=== PATIENT | female | born 1955 | race Caucasian/White ===

== ENCOUNTER 2019-02-24 08:55 | Observation (INO) | payer OTHER ==
[2019-02-24 09:19] LABS: ABSOLUTE LYMPHOCYTES (AUTO) 1.8 10^3/uL (0.5-4.7); ABSOLUTE MONOCYTES (AUTO) 0.3 10^3/uL (0.1-1.4); ABSOLUTE NEUT (AUTO) 3.3 10^3/uL (1.7-8.2); BASOPHILS % (AUTO) 0.3 % (0-2); EOSINOPHILS % (AUTO) 0.7 % (0-6); HEMATOCRIT 39.1 % (36.0-47.0); HEMOGLOBIN 12.9 g/dL (12.0-15.5); LYMPHOCYTES % (AUTO) 33.6 % (13-45); MEAN CORPUSCULAR HEMOGLOBIN 30.6 pg (27.0-33.4); MEAN CORPUSCULAR VOLUME 93 fl (80-97); PLATELET COUNT 272 10^3/uL (150-450); RED BLOOD COUNT 4.21 10^6/uL (3.72-5.28); RED CELL DISTRIBUTION WIDTH 13.4 % (11.5-14.0); SEGMENTED NEUTROPHILS % (AUTO) 60.4 % (42-78); TOTAL CELLS COUNTED % (AUTO) 100 %; WHITE BLOOD COUNT 5.5 10^3/uL (4.0-10.5)
[2019-02-24 09:35] LABS: ALBUMIN 4.2 g/dL (3.5-5.0); ALKALINE PHOSPHATASE 70 U/L (38-126); ANION GAP 10 (5-19); ASPARTATE AMINO TRANSFERASE 22 U/L (14-36); BILIRUBIN,TOTAL 0.5 mg/dL (0.2-1.3); BLOOD UREA NITROGEN 12 mg/dL (7-20); CALCIUM 9.1 mg/dL (8.4-10.2); CARBON DIOXIDE 25 mmol/L (22-30); CHLORIDE 105 mmol/L (98-107); CREATINE KINASE 36 U/L (30-135); GLUCOSE 127 mg/dL (75-110); POTASSIUM 4.1 mmol/L (3.6-5.0)
[2019-02-24 09:46] LABS: CREATINE KINASE MB 0.72 ng/mL (<4.55)
[2019-02-24 09:49] LABS: TROPONIN I < 0.012 ng/mL
[2019-02-24 09:59] LABS: APPEARANCE,URINE CLEAR; BILIRUBIN,URINE NEGATIVE (NEGATIVE); COLOR,URINE YELLOW; GLUCOSE, URINE NEGATIVE (NEGATIVE); KETONES,URINE NEGATIVE (NEGATIVE); LEUKOCYTE ESTERASE,URINE TRACE (NEGATIVE); NITRITE,URINE NEGATIVE (NEGATIVE); PROTEIN,URINE 100 mg/dL (NEGATIVE); UROBILINOGEN,URINE NEGATIVE mg/dL (<2.0)
[2019-02-24 10:00] LABS: URINE SPECIFIC GRAVITY 1.017
--- NOTE | 2019-02-24 10:21 | ER Document Report ---
ED General - General Chief Complaint: Fainting Stated Complaint: SYNCOPE Time Seen by Provider: 02/24/19 10:18 TRAVEL OUTSIDE OF THE [place] IN LAST 30 DAYS: No - HPI Notes: Patient was exercising when she felt lightheaded she took a break start exercising again felt lightheaded again started walking away when she suddenly passed out. She did not have any palpitations or chest pain no headaches but she did have mild nausea. She denies any headache or vision changes at this time. No recent fevers illnesses cough or congestion. No recent medication changes. She does have a history of anxiety and takes a cough suppressant daily. No history of heart attack or stroke. No black or red stools. No v omiting or diarrhea recently. No history of seizures and she did not have any tongue bite or urinating on herself - Related Data Allergies/Adverse Reactions: erythromycin base Adverse Reaction (Intermediate, Verified 10/13/15 07:14) SKIN IRRIATION mercury (elemental) Adverse Reaction (Intermediate, Verified 10/13/15 07:14) SKIN IRRITATION Past Medical History - Social History Smoking Status: Unknown if Ever Smoked Frequency of alcohol use: None Drug Abuse: None Family History: Reviewed & Not Pertinent Patient has suicidal ideation: No Patient has homicidal ideation: No - Past Medical History Cardiac Medical History: Denies: Hx Coronary Artery Disease, Hx Heart Attack, Hx Hypertension Pulmonary Medical History: Denies: Hx Asthma, Hx Bronchitis, Hx COPD, Hx Pneumonia Neurological Medical History: Denies: Hx Cerebrovascular Accident, Hx Seizures Musculoskeletal Medical History: Denies Hx Arthritis - "STIFFNESS IN JOINTS TIMES" Past Surgical History: Denies: Hx Hysterectomy - Immunizations Hx Diphtheria, Pertussis, Tetanus Vaccination: Yes Review of Systems - Review of Systems Constitutional: No symptoms reported EENT: No symptoms reported Cardiovascular: No symptoms reported Respiratory: No symptoms reported Gastrointestinal: No symptoms reported Genitourinary: No symptoms reported Female Genitourinary: No symptoms reported Musculoskeletal: No symptoms reported Skin: No symptoms reported Hematologic/Lymphatic: No symptoms reported Neurological/Psychological: See HPI Physical Exam - Vital signs Vitals: Resp BP Pulse Ox 14 138/68 H 97 02/24/19 09:03 02/24/19 09:03 02/24/19 09:03 - General General appearance: Appears well, Alert - HEENT Head: Normocephalic, Atraumatic - Respiratory Respiratory status: No respiratory distress Chest status: Nontender Breath sounds: Normal Chest palpation: Normal - Cardiovascular Rhythm: Regular Heart sounds: Normal auscultation Murmur: No - Abdominal Inspection: Normal Distension: No distension Bowel sounds: Normal Tenderness: Nontender - Back Back: Normal - Extremities General upper extremity: Normal inspection, Normal ROM General lower extremity: Normal inspection, Normal ROM - Neurological Neuro grossly intact: Yes Cognition: Normal Orientation: AAOx4 Course - Re-evaluation Re-evalutation: 02/24/19 12:20 Will be admitted for syncope work-up. Incidental finding on CT consistent with meningioma discussed this with Dr. Estrada she could warrant MRI while she is on observation status with outpatient follow-up. - Vital Signs Vital signs: Temp Pulse Resp BP Pulse Ox 98.5 F 95 14 135/64 H 96 02/25/19 14:06 02/25/19 14:06 02/25/19 14:06 02/25/19 14:06 02/25/19 14:06 - Laboratory Result Diagrams: 02/25/19 07:37 02/25/19 07:37 Laboratory results interpreted by me: 02/24/19 02/24/19 09:00 09:36 Glucose 127 H Urine Protein 100 H Ur Leukocyte Esterase TRACE H - Diagnostic Test Radiology reviewed: Reports reviewed - EKG Interpretation by Me EKG shows normal: Sinus rhythm Rate: Normal Rhythm: NSR Discharge - Discharge Clinical Impression: Syncope and collapse Condition: Good Disposition: ADMITTED OBSERVATION Admitting Provider: True (Hospitalist) Unit Admitted: Telemetry
--- NOTE | 2019-02-24 10:51 | RADIOLOGY REPORT (SQ) ---
EXAM DESCRIPTION: CHEST SINGLE VIEW COMPLETED DATE/TIME: 02/24/2019 10:39 am REASON FOR STUDY: syncope COMPARISON: None. EXAM PARAMETERS: NUMBER OF VIEWS: One view. TECHNIQUE: Single frontal radiographic view of the chest acquired. RADIATION DOSE: NA LIMITATIONS: None. FINDINGS: LUNGS AND PLEURA: Linear basilar opacities could represent strands of atelectasis or paren chymal bands. There is no consolidation, pleural effusion or pneumothorax. MEDIASTINUM AND HILAR STRUCTURES: No mediastinal or hilar contour abnormality. HEART AND VASCULAR STRUCTURES: The cardiac silhouette and pulmonary vasculature are within normal rae its. BONES: No acute findings. HARDWARE: None in the chest. OTHER: No other finding. IMPRESSION: No acute cardiopulmonary process. TECHNICAL DOCUMENTATION: JOB ID: [id number] [employer]- All Rights Reserved Reading location - IP/workstation name: [email or web address]
--- NOTE | 2019-02-24 11:19 | RADIOLOGY REPORT (SQ) ---
EXAM DESCRIPTION: CT HEAD WITHOUT COMPLETED DATE/TIME: 02/24/2019 10:56 am REASON FOR STUDY: syncope COMPARISON: None. TECHNIQUE: Axial images acquired through the brain without intravenous contrast. Images reviewed wi th bone, brain and subdural windows. Additional sagittal and coronal reconstructions were generated. Images stored on PACS. All CT scanners at this facility use dose modulation, iterative reconstruction, and/or weight based d osing when appropriate to reduce radiation dose to as low as reasonably achievable (ALARA). [facility]: Dose Right [facility]: CareDose [facility]: Dose Right [facility]: Teradose 4D [facility]: Informous RADIATION DOSE: CT Rad equipment meets quality standard of care and radiation dose reduction techniq ues were employed. CTDIvol: 53.2 mGy. DLP: 1070 mGy-cm. mGy. LIMITATIONS: None. FINDINGS: There is a hyperdense mass along the left temporal convexity that measures approximately 1 .2 cm in transverse diameter, 1.8 cm in AP diameter and 2.2 cm in craniocaudal diameter. The mass ex erts mild mass effect on the adjacent brain parenchyma; there is no vasogenic edema. There is also no acute intracranial hemorrhage, extra-axial fluid collection, or midline shift. Ther e is no effacement of cerebral sulci or basal subarachnoid cisterns. The wray-white matter different iation is preserved. The caliber the ventricles is concordant with the degree of sulcation. The orbits and globes are intact. The paranasal sinuses are clear. There is no fracture of the calvarium. IMPRESSION: Hyperdense extra-axial mass along the left temporal convexity that measures approximatel y 1.2 cm in transverse diameter, 1.8 cm in AP diameter and 2.2 cm in craniocaudal diameter. The mass exerts mild mass-effect on the adjacent brain parenchyma without considerable vasogenic edema presen t. The favored differential consideration is a meningioma. EVIDENCE OF ACUTE STROKE: NO. COMMENT: Quality ID # [id number]: Final reports with documentation of one or more dose reduction techniques (e.g., Automated exposure control, adjustment of the mA and/or kV according to patient size, use of iterative reconstruction technique) TECHNICAL DOCUMENTATION: JOB ID: [id number] [employer]- All Rights Reserved Reading location - IP/workstation name: [email or web address]ENTERBRIGIDA
[2019-02-24] MEDS ORDERED: ACETAMINOPHEN 325 MG TABLET PO PRN (12:51)
[2019-02-24] MEDS ORDERED: MAG HYDROX/AL HYDROX/SIMETH SUSP 30 ML UDCUP PO PRN (12:51)
[2019-02-24] MEDS ORDERED: ONDANSETRON HCL INJ/PF 4 MG/2 ML SDV IV PRN (12:51)
[2019-02-24] MEDS ORDERED: ONDANSETRON 4 MG TAB.RAPDIS PO PRN (12:51)
[2019-02-24] MEDS ORDERED: OXYCODONE-ACETAMINOPHEN 5-325 MG TABLET PO PRN (12:51)
--- NOTE | 2019-02-24 13:09 | PDOC H&P ---
History of Present Illness Admission Date/PCP: 02/24/19 12:23 EVONNE CHAMORRO MD History of Present Illness: EARNESTINE BANG is a 63 year old female who was admitted through the emergency room for syncope episode. Was evidently had a exercise program this morning around 730 when about 30 minutes into the program she became weak and felt "faint". Patient went to the side of the room said she felt some better was going to get up and walk out to the front when she slumped and went to the ground. She did not hit her head according to the patient she was out for about 1 minute. No seizure activity, no chest pain, no vomiting patient reports feeling nauseated.. She states she is never had this happen to her before. States she was not doing a cardio workout it was more of a free weights and controlled exercise class. Patient states she does this class about 3 times every week. She denies eating anything prior to taking the class this morning. Patient denies any recent illnesses. Patient states she is otherwise healthy denies diabetes denies hypertension denies heart disease. Patient has no complaints at this time. Patient just recently retired as a schoolteacher. He takes Xanax as a PRN medicine for anxiety and sounds like she uses it every day Past Medical History Cardiac Medical History: Denies: Coronary Artery Disease, Myocardial Infarction, Hypertension Pulmonary Medical History: Denies: Asthma, Bronchitis, Chronic Obstructive Pulmonary Disease (COPD), Pneumonia Neurological Medical History: Denies: Seizures Musculoskeltal Medical History: Denies: Arthritis - "STIFFNESS IN JOINTS TIMES" Skin Medical History: Reports: Other - Benign skin growths Psychiatric Medical History: Reports: General Anxiety Disorder Hematology: Denies: Anemia Past Surgical History Past Surgical History: Denies: Hysterectomy Social History Smoking Status: Unknown if Ever Smoked - Advance Directive Resuscitation Status: Full Code Family History Parental Family History Reviewed: No Children Family History Reviewed: No Sibling(s) Family History Reviewed.: No Medication/Allergy Home Medications: Alprazolam [Xanax 0.5 mg Tablet] 0.5 mg PO TID 10/11/15 Benzonatate [Tessalon Perles 100 mg Capsule] 200 mg PO Q8HP PRN 10/11/15 Ibuprofen [Advil] 200 mg PO ASDIR PRN 10/11/15 Multivitamin [Multivitamins] 1 each PO DAILY 10/11/15 Mv-Mn/C/Glutamin/Lysin/Lrnh668 [Airborne Lozenge] 1 each PO ASDIR PRN 10/11/15 Allergies/Adverse Reactions: erythromycin base Adverse Reaction (Intermediate, Verified 10/13/15 07:14) SKIN IRRIATION mercury (elemental) Adverse Reaction (Intermediate, Verified 10/13/15 07:14) SKIN IRRITATION Review of Systems All systems: reviewed and no additional remarkable complaints except as stated Constitutional: ABSENT: chills, fever(s), headache(s), weight gain, weight loss Breasts: PRESENT: other - She reports that she has fibroids in her breast Respiratory: ABSENT: cough, hemoptysis Gastrointestinal: ABSENT: abdominal pain, constipation, diarrhea, hematemesis, hematochezia, nausea, vomiting Neurological: ABSENT: abnormal gait, abnormal speech, confusion, dizziness, focal weakness, syncope Psychiatric: PRESENT: anxiety Physical Exam Vital Signs: Temp Pulse Resp BP Pulse Ox 58 L 16 127/66 H 96 02/24/19 09:23 02/24/19 10:01 02/24/19 10:01 02/24/19 11:49 Intake & Output 02/23/19 02/24/19 02/25/19 06:59 06:59 06:59 Weight 74.5 kg General appearance: PRESENT: no acute distress Neck exam: ABSENT: carotid bruit, JVD, lymphadenopathy, thyromegaly Respiratory exam: PRESENT: clear to auscultation ike. ABSENT: rales, rhonchi, wheezes Cardiovascular exam: PRESENT: RRR. ABSENT: diastolic murmur, rubs, systolic murmur Neurological exam: PRESENT: alert, awake, oriented to person, oriented to place, oriented to time, oriented to situation, CN II-XII grossly intact. ABSENT: motor sensory deficit Psychiatric exam: PRESENT: appropriate affect, normal mood. ABSENT: homicidal ideation, suicidal ideation Results Laboratory Results: 02/24/19 09:00 02/24/19 09:00 02/24/19 02/24/19 02/24/19 09:00 09:00 09:36 WBC 5.5 RBC 4.21 Hgb 12.9 Hct 39.1 MCV 93 MCH 30.6 MCHC 33.0 RDW 13.4 Plt Count 272 Seg Neutrophils % 60.4 Sodium 140.0 Potassium 4.1 Chloride 105 Carbon Dioxide 25 Anion Gap 10 BUN 12 Creatinine 0.73 Est GFR ( Amer) > 60 Glucose 127 H Calcium 9.1 Total Bilirubin 0.5 AST 22 Alkaline Phosphatase 70 Total Protein 7.0 Albumin 4.2 Urine Color YELLOW Urine Appearance CLEAR Urine pH 5.0 Ur Specific [place] 1.017 Urine Protein 100 H Urine Glucose (UA) NEGATIVE Urine Ketones NEGATIVE Urine Blood NEGATIVE Urine Nitrite NEGATIVE Ur Leukocyte Esterase TRACE H Urine WBC (Auto) 4 Urine RBC (Auto) 1 02/24/19 02/24/19 02/24/19 09:00 09:00 09:00 Creatine Kinase 36 CK-MB (CK-2) 0.72 Troponin I < 0.012 Cancelled NT-Pro-B Natriuret Pep 122 Impressions: Chest X-Ray 02/24/19 10:18 IMPRESSION: No acute cardiopulmonary process. Head CT 02/24/19 10:21 IMPRESSION: Hyperdense extra-axial mass along the left temporal convexity that measures approximately 1.2 cm in transverse diameter, 1.8 cm in AP diameter and 2.2 cm in craniocaudal diameter. The mass exerts mild mass-effect on the adjacent brain parenchyma without considerable vasogenic edema present. The favored differential consideration is a meningioma. EVIDENCE OF ACUTE STROKE: NO. Assessment and Plan - Diagnosis (1) Meningioma Is this a current diagnosis for this admission?: Yes (2) Anxiety Is this a current diagnosis for this admission?: Yes (3) Syncope and collapse Is this a current diagnosis for this admission?: Yes - Plan Summary Summary: Patient had a CT head scan as part of her routine work-up in the ER and it revealed a probable meningioma in the left cortex. To be studied further with an MRI scan of the brain Patient will have an echocardiogram as well as carotid Dopplers. Patient will be put in under observation status under telemetry for further evaluation of any cardiac abnormalities. Patient's was in the room during the examination all of their her questions were answered Patient is currently medically stable - Time Time Spent with patient: 35 or more minutes
[2019-02-24] MEDS: ENOXAPARIN SODIUM INJ 40 MG/0.4 ML DISP.SYRIN SUBCUT SCH (13:35)
--- NOTE | 2019-02-24 13:57 | EKG REPORT ---
SEVERITY:- BORDERLINE ECG - SINUS RHYTHM BORDERLINE T ABNORMALITIES, INFERIOR LEADS : Confirmed by: Moshe Betancur MD 24-Feb-2019 13:56:07
[2019-02-24] MEDS ORDERED: ALPRAZOLAM 0.5 MG TABLET PO PRN (14:24)
[2019-02-24 15:42] LABS: CREATINE KINASE MB 0.77 ng/mL (<4.55)
[2019-02-24 15:52] LABS: TROPONIN I < 0.012 ng/mL
--- NOTE | 2019-02-24 16:12 | RADIOLOGY REPORT (SQ) ---
EXAM DESCRIPTION: MRI HEAD COMBO COMPLETED DATE/TIME: 02/24/2019 3:44 pm REASON FOR STUDY: menngioma on ct COMPARISON: 02/24/2019 CT TECHNIQUE: Multiplanar imaging includes noncontrasted T1, T2, FLAIR, diffusion with ADC map and post gadolinium contrast T1 sequences. Images stored on PACS. CONTRAST TYPE AND DOSE: 15 mL Dotarem. RENAL FUNCTION: GFR > 60. LIMITATIONS: None. FINDINGS: ANATOMY: No anomalies. Normal vascular flow voids. Pituitary fossa normal. CSF SPACES: Normal in size and contour. No hemorrhage. CEREBRUM: Sulci and gyri normal in size and contour. Normal white matter signal on FLAIR imaging. No evidence of hemorrhage or extraaxial fluid collection. 1.9 cm extra-axial uniformly enhancing mass i n the left frontotemporal region with dural attachment most consistent with meningioma. POSTERIOR FOSSA: No signal alteration. No hemorrhage. No edema, masses, or mass effect. Internal diego tory canals, cerebellopontine angles, mastoids normal. No enhancing lesions. No abnormal enhancement post contrast. DIFFUSION IMAGING: Negative for acute or subacute infarction. ORBITS: No masses. Globes normal. PARANASAL SINUSES: No fluid levels. Mucosa normal. OTHER: No other significant finding. IMPRESSION: 1.9 cm extra-axial uniformly enhancing mass in the left frontotemporal region with dur al attachment most consistent with meningioma. Otherwise unremarkable exam. EVIDENCE OF ACUTE STROKE: NO. TECHNICAL DOCUMENTATION: JOB ID: [id number] [place]-72 2010 [email or web address]- All Rights Reserved Reading location - IP/workstation name: [email or web address] Sparks NetworkUrban Gentleman
--- NOTE | 2019-02-24 17:08 | RADIOLOGY REPORT (SQ) ---
EXAM DESCRIPTION: CAROTID DOPPLER COMPLETED DATE/TIME: 02/24/2019 4:18 pm REASON FOR STUDY: syncope COMPARISON: None. TECHNIQUE: Grayscale ultrasound, Doppler velocity and spectra, and color Doppler images acquired of the extra-cranial carotid and vertebral arteries. Images stored on PACS. LIMITATIONS: None. FINDINGS: RIGHT CAROTID CCA Velocities: Within normal limits. ICA Velocities Peak systolic 131 cm/s. End diastolic 46 cm/s. Proximal ICA/CCA peak systolic ratio 1.6. Spectra normal. No significant plaque. LEFT CAROTID CCA Velocities: Within normal limits. ICA Velocities Peak systolic 140 cm/s. End diastolic 53 cm/s. Proximal ICA/CCA peak systolic ratio 1.4. Spectra normal. No significant plaque. VERTEBRAL ARTERIES: Antegrade flow. Normal waveforms. SUBCLAVIAN ARTERIES: No finding. OTHER: No other significant finding. IMPRESSION: NO HEMODYNAMICALLY SIGNIFICANT STENOSIS. COMMENT: Quality ID #[id number]: Velocity criteria are extrapolated from the diameter data as defined by t ruthie Society of Radiologists in Ultrasound Consensus Conference. Radiology 2003: 229; 340-346. TECHNICAL DOCUMENTATION: JOB ID: [id number] [place]-72 2010 [email or web address]- All Rights Reserved Reading location - IP/workstation name: [email or web address]
[2019-02-24] MEDS: FAMOTIDINE 20 MG TABLET PO SCH (21:35)
[2019-02-24] MEDS ORDERED: ALPRAZOLAM 0.5 MG TABLET PO SCH (22:00)
[2019-02-25 08:11] LABS: ABSOLUTE EOSINOPHILS # (AUTO) 0.1 10^3/uL (0.0-0.6); ABSOLUTE LYMPHOCYTES (AUTO) 2.3 10^3/uL (0.5-4.7); ABSOLUTE MONOCYTES (AUTO) 0.3 10^3/uL (0.1-1.4); ABSOLUTE NEUT (AUTO) 2.2 10^3/uL (1.7-8.2); BASOPHILS % (AUTO) 0.7 % (0-2); EOSINOPHILS % (AUTO) 1.6 % (0-6); HEMATOCRIT 38.6 % (36.0-47.0); HEMOGLOBIN 13.2 g/dL (12.0-15.5); LYMPHOCYTES % (AUTO) 45.9 % (13-45); MEAN CORPUSCULAR HEMOGLOBIN 31.5 pg (27.0-33.4); MEAN CORPUSCULAR HGB CONC 34.1 g/dL (32.0-36.0); MEAN CORPUSCULAR VOLUME 92 fl (80-97); MONOCYTES % (AUTO) 6.9 % (3-13); PLATELET COUNT 272 10^3/uL (150-450); RED BLOOD COUNT 4.18 10^6/uL (3.72-5.28); RED CELL DISTRIBUTION WIDTH 13.7 % (11.5-14.0); SEGMENTED NEUTROPHILS % (AUTO) 44.9 % (42-78); TOTAL CELLS COUNTED % (AUTO) 100 %; WHITE BLOOD COUNT 4.9 10^3/uL (4.0-10.5)
[2019-02-25 08:13] LABS: ANION GAP 10 (5-19); BLOOD UREA NITROGEN 16 mg/dL (7-20); CALCIUM 9.5 mg/dL (8.4-10.2); CARBON DIOXIDE 24 mmol/L (22-30); CHLORIDE 108 mmol/L (98-107); GLUCOSE 89 mg/dL (75-110); POTASSIUM 4.3 mmol/L (3.6-5.0)
[2019-02-25] MEDS: FAMOTIDINE 20 MG TABLET PO SCH (09:19)
[2019-02-25] MEDS: ENOXAPARIN SODIUM INJ 40 MG/0.4 ML DISP.SYRIN SUBCUT SCH (09:19)
[2019-02-25] MEDS ORDERED: MULTIVITAMIN TABLET PO SCH (10:00)
[2019-02-25] MEDS ORDERED: DOCUSATE SODIUM 100 MG CAPSULE PO SCH (10:00)
[2019-02-25] MEDS ORDERED: CHOLECALCIFEROL (D3) 1,000 UNIT (25 MCG) TABLET PO SCH (10:00)
--- NOTE | 2019-02-25 12:40 | PDOC DISCHARGE SUMMARY ---
Impression - Admit/DC Date/PCP Admission Date/Primary Care Provider: 02/24/19 12:23 EVONNE CRUMP MD Discharge Date: 02/25/19 - Discharge Diagnosis (1) Anxiety Is this a current diagnosis for this admission?: Yes (2) Meningioma Is this a current diagnosis for this admission?: Yes (3) Syncope and collapse Is this a current diagnosis for this admission?: Yes - Assessment Summary: Patient had a CT head scan as part of her routine work-up in the ER and it revealed a probable meningioma in the left cortex. To be studied further with an MRI scan of the brain Patient will have an echocardiogram as well as carotid Dopplers. Patient will be put in under observation status under telemetry for further evaluation of any cardiac abnormalities. Patient's was in the room during the examination all of their her questions were answered Patient is currently medically stable - Additional Information Resuscitation Status: Full Code Discharge Diet: Regular Discharge Activity: Activity As Tolerated Referrals: EVONNE CRUMP MD [Primary Care Provider] - Follow up as needed Home Medications: Alprazolam [Xanax 0.5 mg Tablet] 0.5 mg PO BID 10/11/15 Benzonatate [Tessalon Perles 100 mg Capsule] 200 mg PO Q8HP PRN 10/11/15 Alprazolam [Xanax 0.5 mg Tablet] 1 mg PO QHS 02/24/19 Cholecalciferol (Vitamin D3) [Vitamin D3 1000 Unit Tablet] 1,000 unit PO DAILY 02/24/19 Multivitamin [Tab-A-Constantino (Multiple Vitamin) Tablet] 1 tab PO DAILY 02/24/19 Docusate Sodium [Colace 100 mg Capsule] 100 mg PO DAILY capsule 02/25/19 History of Present Illiness History of Present Illness: EARNESTINE BANG is a 63 year old female with a past medical history of anxiety who was exercising at the gymnasium. She experienced syncope and collapse. On evaluation in the emergency department she was found to have a cerebral mass likely meningioma. This was an incidental finding. Because of the syncope and collapse she was admitted for work-up and monitoring by the hospitalist service. Hospital Course Hospital Course: The patient had an unremarkable hospital course. CT CT scan of the head and MRI revealed the likely meningioma but no other findings. There was no abnormalities regarding cardiac rhythm. The patient also had an echocardiogram. The results are pending. This will rule out any cardiac structural abnormalities. Based on the singularity of this event and her rapid recovery cardia myopathy is unlikely. Physical Exam Vital Signs: Temp Pulse Resp BP Pulse Ox 98.5 F 95 14 135/64 H 96 02/24/19 21:19 02/25/19 07:00 02/24/19 21:19 02/24/19 15:35 02/24/19 21:19 Intake & Output 02/24/19 02/25/19 02/26/19 06:59 06:59 06:59 Intake Total 676 Balance 676 Weight 74.6 kg General appearance: PRESENT: no acute distress, cooperative, well-developed Head exam: PRESENT: atraumatic, normocephalic Eye exam: PRESENT: conjunctiva pink. ABSENT: scleral icterus Ear exam: PRESENT: normal external ear exam. ABSENT: bleeding, drainage Mouth exam: PRESENT: moist, tongue midline Respiratory exam: PRESENT: clear to auscultation ike, symmetrical, unlabored. ABSENT: rales, rhonchi, tachypnea, wheezes Cardiovascular exam: PRESENT: RRR, +S1, +S2, systolic murmur - 1/6 GI/Abdominal exam: PRESENT: normal bowel sounds, soft. ABSENT: distended, guarding, tenderness Rectal exam: PRESENT: deferred Gentrourinary exam: ABSENT: indwelling catheter Extremities exam: PRESENT: full ROM. ABSENT: calf tenderness, pedal edema Musculoskeletal exam: PRESENT: ambulatory, full ROM. ABSENT: deformity Neurological exam: PRESENT: alert, awake, oriented to person, oriented to place, oriented to time, oriented to situation, CN II-XII grossly intact Psychiatric exam: PRESENT: appropriate affect, normal mood. ABSENT: agitated, anxious Focused psych exam: ABSENT: delusional, restlessness Skin exam: PRESENT: dry, normal color, warm. ABSENT: rash Results Laboratory Results: WBC 4.9 10^3/uL (4.0-10.5) 02/25/19 07:37 RBC 4.18 10^6/uL (3.72-5.28) 02/25/19 07:37 Hgb 13.2 g/dL (12.0-15.5) 02/25/19 07:37 Hct 38.6 % (36.0-47.0) 02/25/19 07:37 MCV 92 fl (80-97) 02/25/19 07:37 MCH 31.5 pg (27.0-33.4) 02/25/19 07:37 MCHC 34.1 g/dL (32.0-36.0) 02/25/19 07:37 RDW 13.7 % (11.5-14.0) 02/25/19 07:37 Plt Count 272 10^3/uL (150-450) 02/25/19 07:37 Lymph % (Auto) 45.9 % (13-45) H 02/25/19 07:37 [place] % (Auto) 6.9 % (3-13) 02/25/19 07:37 Eos % (Auto) 1.6 % (0-6) 02/25/19 07:37 Baso % (Auto) 0.7 % (0-2) 02/25/19 07:37 Absolute Neuts (auto) 2.2 10^3/uL (1.7-8.2) 02/25/19 07:37 Absolute Lymphs (auto) 2.3 10^3/uL (0.5-4.7) 02/25/19 07:37 Absolute Monos (auto) 0.3 10^3/uL (0.1-1.4) 02/25/19 07:37 Absolute Eos (auto) 0.1 10^3/uL (0.0-0.6) 02/25/19 07:37 Absolute Basos (auto) 0.0 10^3/uL (0.0-0.2) 02/25/19 07:37 Seg Neutrophils % 44.9 % (42-78) 02/25/19 07:37 Sodium 142.2 mmol/L (137-145) 02/25/19 07:37 Potassium 4.3 mmol/L (3.6-5.0) 02/25/19 07:37 Chloride 108 mmol/L (98-107) H 02/25/19 07:37 Carbon Dioxide 24 mmol/L (22-30) 02/25/19 07:37 Anion Gap 10 (5-19) 02/25/19 07:37 BUN 16 mg/dL (7-20) 02/25/19 07:37 Creatinine 0.67 mg/dL (0.52-1.25) 02/25/19 07:37 Est GFR ( Amer) > 60 (>60) 02/25/19 07:37 Est GFR (MDRD) Non-Af > 60 (>60) 02/25/19 07:37 Glucose 89 mg/dL (75-110) 02/25/19 07:37 Calcium 9.5 mg/dL (8.4-10.2) 02/25/19 07:37 Magnesium 2.0 mg/dL (1.6-2.3) 02/25/19 07:37 Total Bilirubin 0.5 mg/dL (0.2-1.3) 02/24/19 09:00 Direct Bilirubin 0.0 mg/dL (0.0-0.4) 02/24/19 09:00 Neonat Total Bilirubin Not Reportable 02/24/19 09:00 Neonat Direct Bilirubin Not Reportable 02/24/19 09:00 Neonat Indirect Bili Not Reportable 02/24/19 09:00 AST 22 U/L (14-36) 02/24/19 09:00 ALT 13 U/L (<35) 02/24/19 09:00 Alkaline Phosphatase 70 U/L (38-126) 02/24/19 09:00 Creatine Kinase 36 U/L (30-135) 02/24/19 09:00 CK-MB (CK-2) 0.77 ng/mL (<4.55) 02/24/19 14:51 Troponin I < 0.012 ng/mL 02/24/19 14:51 NT-Pro-B Natriuret Pep 122 pg/mL (<125) 02/24/19 09:00 Total Protein 7.0 g/dL (6.3-8.2) 02/24/19 09:00 Albumin 4.2 g/dL (3.5-5.0) 02/24/19 09:00 TSH 3.42 uIU/mL (0.47-4.68) 02/24/19 09:00 Urine Color YELLOW 02/24/19 09:36 Urine Appearance CLEAR 02/24/19 09:36 Urine pH 5.0 (5.0-9.0) 02/24/19 09:36 Ur Specific Burns 1.017 02/24/19 09:36 Urine Protein 100 mg/dL (NEGATIVE) H 02/24/19 09:36 Urine Glucose (UA) NEGATIVE mg/dL (NEGATIVE) 02/24/19 09:36 Urine Ketones NEGATIVE mg/dL (NEGATIVE) 02/24/19 09:36 Urine Blood NEGATIVE (NEGATIVE) 02/24/19 09:36 Urine Nitrite NEGATIVE (NEGATIVE) 02/24/19 09:36 Urine Bilirubin NEGATIVE (NEGATIVE) 02/24/19 09:36 Urine Urobilinogen NEGATIVE mg/dL (<2.0) 02/24/19 09:36 Ur Leukocyte Esterase TRACE (NEGATIVE) H 02/24/19 09:36 Urine WBC (Auto) 4 /HPF 02/24/19 09:36 Urine RBC (Auto) 1 /HPF 02/24/19 09:36 U Hyaline Cast (Auto) 19 /LPF 02/24/19 09:36 Urine Bacteria (Auto) TRACE /HPF 02/24/19 09:36 Squamous Epi Cells Auto 1 /HPF 02/24/19 09:36 Urine Mucus (Auto) MANY /LPF 02/24/19 09:36 Urine Ascorbic Acid NEGATIVE (NEGATIVE) 02/24/19 09:36 02/24/19 02/24/19 02/24/19 09:00 09:00 14:51 CK-MB (CK-2) 0.72 0.77 Troponin I < 0.012 Cancelled < 0.012 NT-Pro-B Natriuret Pep 122 Impressions: Chest X-Ray 02/24/19 10:18 IMPRESSION: No acute cardiopulmonary process. Head CT 02/24/19 10:21 IMPRESSION: Hyperdense extra-axial mass along the left temporal convexity that measures approximately 1.2 cm in transverse diameter, 1.8 cm in AP diameter and 2.2 cm in craniocaudal diameter. The mass exerts mild mass-effect on the adjacent brain parenchyma without considerable vasogenic edema present. The favored differential consideration is a meningioma. EVIDENCE OF ACUTE STROKE: NO. Carotid Doppler Study 02/24/19 12:57 IMPRESSION: NO HEMODYNAMICALLY SIGNIFICANT STENOSIS. Head MRI 02/24/19 12:57 IMPRESSION: 1.9 cm extra-axial uniformly enhancing mass in the left fronto temporal region with dural attachment most consistent with meningioma. Otherwise unremarkable exam. EVIDENCE OF ACUTE STROKE: NO. Plan Health Concerns: New brain mass likely meningioma. We will follow-up with her primary care and neurosurgery as an outpatient. Plan of Treatment: Follow-up with Dr. Crump regarding syncopal episode. Dr. Crump will refer to neurosurgeon for ongoing assessment and treatment plan for the meningioma. Goals: Diagnosis and treatment for meningioma. Stay well-hydrated. Continue to exercise. Time Spent: Greater than 30 Minutes Stroke Is this a Stroke Patient?: No Acute Heart Failure - Is this a Heart Failure Patient?: No
[2019-02-25 19:23] VITALS: BP 117/69
--- NOTE | 2019-02-25 23:52 | XCELERA REPORT ---
[address] [address] Transthoracic Echocardiogram Report Name: EARNESTINE BANG Age: 63 yrs Gender: Female : 1955 Patient Status: Inpatient Patient Location: [address] [place] [address] Study Date: 02/24/2019 01:40 PM Height: 64 in Weight: 164 lb BSA: 1.8 m2 Procedure: A two-dimensional transthoracic echocardiogram with color flow and Doppler was performed. Study Quality: Fair. Reason For Study: syncope History: syncope. Ordering Physician: ASTON BLACKWELL Performed By: Kasandra Bermudez Interpretation Summary The left ventricle is normal in size. There is normal left ventricular wall thickness. LV EF is > than 65% Left ventricular systolic function is normal. Doppler measurements suggest impaired left ventricular relaxation, which is associated with grade I/IV or mild diastolic dysfunction The left ventricular wall motion is normal. There is no thrombus. No ASD ,VSD , or PFO seen. The right ventricle is grossly normal size. The right atrium is normal. The left atrial size is normal. There is no evidence of mitral valve prolapse. There is no vegetation seen on the mitral valve. There is no mitral valve stenosis. There is a trace amount of mitral regurgitation There is no aortic valvular vegetation. There is no aortic valve stenosis There is no LVOT obstruction. No aortic regurgitation is present. There is no tricuspid stenosis. There is a trace to mild amount of tricuspid regurgitation There is mild pulmonary hypertension by echo RVSP is 32 to 37 mm of Hg , with RA mean of 5 to 10. There is no pulmonic valvular stenosis. There is no pulmonic valvular regurgitation. The aortic root is normal size. The inferior vena cava appeared normal and decreased > 50% with respiration (RAP 5-10 mmHg) There is no pericardial effusion. MMode/2D Measurements & Calculations RVDd: 2.9 cm LVIDd: 3.6 cm FS: 41.4 % Ao root diam: 2.6 cm IVSd: 1.0 cm LVIDs: 2.1 cm EDV(Teich): 54.2 ml Ao root area: 5.3 cm2 LVPWd: 0.94 cm ESV(Teich): 14.5 ml LA dimension: 2.7 cm EF(Teich): 73.2 % Doppler Measurements & Calculations MV E max carmine: MV P1/2t max carmine: Ao V2 max: LV V1 max P.9 cm/sec 86.9 cm/sec 148.6 cm/sec 8.1 mmHg MV A max carmine: MV P1/2t: 81.9 msec Ao max P.8 mmHgLV V1 max: 91.8 cm/sec MVA(P1/2t): 2.7 cm2 142.2 cm/sec MV E/A: 0.94 MV dec slope: 310.5 cm/sec2 MV dec time: 0.26 sec PA V2 max: TR max carmine: MV P1/2t-pr_phl: 114.5 cm/sec 259.4 cm/sec 81.9 msec PA max P.2 mmHgTR max P.9 mmHg Left Ventricle The left ventricle is normal in size. There is normal left ventricular wall thickness. LV EF is > than 65%. Left ventricular systolic function is normal. Doppler measurements suggest impaired left ventricular relaxation, which is associated with grade I/IV or mild diastolic dysfunction. The left ventricular wall motion is normal. There is no thrombus. No ASD ,VSD , or PFO seen. Right Ventricle The right ventricle is grossly normal size. Atria The right atrium is normal. The left atrial size is normal. Mitral Valve There is no evidence of mitral valve prolapse. There is no vegetation seen on the mitral valve. There is no mitral valve stenosis. There is a trace amount of mitral regurgitation. Aortic Valve There is no aortic valvular vegetation. There is no aortic valve stenosis. There is no LVOT obstruction. No aortic regurgitation is present. Tricuspid Valve There is no tricuspid stenosis. There is a trace to mild amount of tricuspid regurgitation. There is mild pulmonary hypertension by echo. RVSP is 32 to 37 mm of Hg , with RA mean of 5 to 10. Pulmonic Valve There is no pulmonic valvular stenosis. There is no pulmonic valvular regurgitation. Great Vessels The aortic root is normal size. The inferior vena cava appeared normal and decreased > 50% with respiration (RAP 5-10 mmHg). Effusions There is no pericardial effusion. : ASTON BLACKWELL Lakshmi
== END 2019-02-25 14:39 | disposition home or self-care (01) ==
LOC: ER 08:55 → EH 12:23 → 4N 15:07
PROVIDERS: ADMIT Hospitalist; ATTEND Hospitalist
DX: R55 Syncope and collapse (principal); F41.1 Generalized anxiety disorder; D32.0 Benign neoplasm of cerebral meninges; R11.0 Nausea
CPT/HCPCS: 93005; 99285; 36415 ×2; 82553; 82550; 83735; 84443; 85025 ×2; 80048; 80053; 81001; 84484; 83880; 93306; 93880; 70553; 71045; 70450; 93010; A9576; J1650 ×2; G0378

== ENCOUNTER 2019-11-19 06:37 | Day surgery (SDC) | payer MEDICARE, OTHER ==
[2019-11-16 09:44] LABS: HEMATOCRIT 41.3 % (36.0-47.0); MEAN CORPUSCULAR HEMOGLOBIN 31.3 pg (27.0-33.4); MEAN CORPUSCULAR VOLUME 92 fl (80-97); PLATELET COUNT 266 10^3/uL (150-450); RED BLOOD COUNT 4.48 10^6/uL (3.72-5.28); RED CELL DISTRIBUTION WIDTH 13.6 % (11.5-14.0); WHITE BLOOD COUNT 4.7 10^3/uL (4.0-10.5)
[~2019-11-19 06:37] MED LIST: ACETAMINOPHEN 325 MG TABLET PO PRN; LACTATED RINGERS 1000 ML IV PRN; LIDOCAINE 0.5% INJ-PF (5 MG/ML) 50 ML SDV SUBCUT PRN
[2019-11-19] MEDS ORDERED: PROPOFOL INJ 200 MG/20 ML VIAL IV ONE (07:34)
--- NOTE | 2019-11-19 08:23 | Discharge Summary ---
Discharge Summary (SDC) - Discharge Final Diagnosis: Extensive diverticulosis otherwise normal colonoscopy Date of Surgery: 11/19/19 Discharge Date: 11/19/19 Condition: Good Treatment or Instructions: [place] [id number] POST ENDOSCOPY DISCHARGE INSTRUCTIONS 1. Diet: Start clear liquids that a regular diet as tolerated. 2. Resume all preoperative medications. All oral anticoagulants and aspirins can be resumed 24 hours after procedure. 3. If a polypectomy was performed some bleeding per rectum may occur. This should stop within 3 days. If not, please contact the office. 4. If you had a colonoscopy you may experience some bloating and delayed return of normal bowel function for several days, your regular bowel movement pattern should resume within a week. 5. Please contact [facility] at to make an appointment with Dr. Benitez for 1 to 3 weeks following procedure. 6. If you have any questions or concerns regarding your care,treatment plan or follow up, please contact our office. 7. Per clinical guidelines we recommend you undergo a repeat colonoscopy in 5 to 7 years. Referrals: EVONNE CHAMORRO MD [Primary Care Provider] - Discharge Diet: As Tolerated Discharge Activity: Activity As Tolerated Home Care Assistance: None Needed Report the Following to Your Physician Immediately: Shortness of Breath, Increase in Pain, Fever over 101 Degrees
--- NOTE | 2019-11-19 08:25 | Operative Report ---
Operative Report DATE OF SURGERY: 11/19/19 PREOPERATIVE DIAGNOSIS: 1. Personal history of colon polyp, tubular adenoma, t he rectum. 2. Diverticulosis POSTOPERATIVE DIAGNOSIS: Extensive diverticulosis of the right and left colon; otherwise normal colonoscopy OPERATION: Total colonoscopy to cecum SURGEON: SUBHA JONES ANESTHESIA: LMAC TISSUE REMOVED OR ALTERED: None COMPLICATIONS: None ESTIMATED BLOOD LOSS: None INTRAOPERATIVE FINDINGS: See below PROCEDURE: Obtaining informed consent the patient was taken from the preoperative holding area to the main endoscopy suite where monitoring devices were attached to the patient. Plan and surgical timeout were conducted The patient was placed in the left lateral decubitus position with knees to chest. A perianal examination was performed. There was no visible or palpable anorectal pathology. Sphincter tone was felt to be normal. The flexible adult colonoscope was advanced through the anal rectal canal, all the way to the cecum. Visualization of the cecum was achieved by demonstration of the ileocecal valve, the appendiceal orifice and transillumination of the anterior abdominal wall. There is a residual amount of solid stool in the rectal vault which was removed with irrigation. This was an excellent study on the well-prepped bowel. The colonoscope was withdrawn slowly and methodically checked and the mucosa carefully. There was no evidence of tumor, stricture, bleeding or polyp. There were extensive diver ticulosis of the right colon, and left colon, but no evidence of stricture or inflammation. The scope was slowly withdrawn through the anal rectal canal. The scope was retroflexed in the anal rectal canal. Small internal hemorrhoids appreciated. No thrombosis. Complete visualization of the rectum was achieved with photodocumentation. The scope was withdrawn to the patient's anus. The patient tolerated the procedure well and was taken to the recovery area in stable condition. Per surveillance guidelines, patient will be an appropriate candidate for follow-up colonoscopy in 5-7 years.
[2019-11-19 10:09] VITALS: BP 107/64
== END 2019-11-19 09:50 | disposition home or self-care (01) ==
LOC: END 06:37
PROVIDERS: ATTEND Surgery
DX: Z12.11 Encounter for screening for malignant neoplasm of colon (principal); K57.30 Diverticulosis of large intestine without perforation or abscess without bleeding; Z86.010 Personal history of colon polyps; R06.02 Shortness of breath; Z79.899 Other long term (current) drug therapy; Z88.1 Allergy status to other antibiotic agents; J45.909 Unspecified asthma, uncomplicated; Z85.828 Personal history of other malignant neoplasm of skin; Z03.818 Encounter for observation for suspected exposure to other biological agents ruled out
CPT/HCPCS: 45378; 36415; 85027; 00812; U0003; J2704; C9803; 812; 87635